=== PATIENT | female | born 1960 | race Caucasian/White ===

== ENCOUNTER 2021-01-18 15:13 | Outpatient (REF) | payer MEDICAID, SELFPAY ==
--- NOTE | 2021-01-18 15:54 | MHC.AU.ANR ---
Adult Audiological Evaluation Date of Visit: 01/18/21 Reason for Appointment: Audiological evaluation due to concern for decreased hearing. Ms. Hameed feels that she hears well most of the time, but notes that she has been asking for repetition more frequently. She also finds that she is more sensitive to some sounds. She has a family history of hearing loss and would like to have a baseline audiogram in case her hearing gets worse overtime. Does patient feel they have a hearing loss?: Unsure When Was Hearing Difficulty First Noticed?: Over the last year or so Has hearing been tested previously?: No Hearing Handicap Inventory: HHIE SCORE: 4 Based on HHIE score, patient has: No perceived hearing handicap Ear History: Family History of Hearing Loss?: Yes: Father and paternal grandmother Medical History: Medical History: of both sons with normal deliveries in May 1992 and Nov 1993. Plates and screws in left tibial head and right radius due to an accident. Allergies: Codeine and sulfa drugs Medication List: Supplements: Vitamin D, C, B-Complex, CoQ10, Magnesium Otoscopy: Right Ear: Unremarkable Left Ear: Unremarkable Tympanometry: Tympanometry performed due to: To assess integrity of the middle ear system Right Ear: Normal Middle Ear System (Type A) Left Ear: Normal Middle Ear System (Type A) Hearing Evaluation: Transducer(s) Used: Insert Earphones Method: Conventional Audiometry Stimuli Used: Pure Tones Right Ear: Description of Hearing: Normal hearing from 250-8000 Hz. Left Ear: Description of Hearing: Normal hearing from 250-8000 Hz. Speech Recognition Threshold (SRT): Method Used: Monitored Live Voice Stimuli Used: Spondee Words Right Ear: 15 dBHL Left Ear: 15 dBHL Word Discrimination: Method: Recorded Lists Word Lists Used: NU-6 Right Ear: 96% at 55 dBHL Left Ear: 100% at 55 dBHL QuickSIN: -1 dB SNR loss when presented binaurally at 55 dBHL, indicating normal [id number] understanding abilities. Recommendations: No further audiological action is indicated at this time. Recommend re-evaluation in 5 years, or sooner if changes are noted. Diagnosis: Primary Diagnosis: H93.293 Abnormal Auditory Perception Services Performed: Services Performed: Pure Tone- Air (CPT 13765) Speech Audiometry Threshold, with Speech Recognition (CPT 30695) Tympanometry (CPT 27903) Unlisted Otorhinolaryngological Service or Procedure (CPT 33771) Signature: Provider: Velvet Weinberg, CCC-A
== END 2021-01-18 15:14 | disposition home or self-care (01) ==
LOC: HO.SH 15:13
PROVIDERS: Visit Provider Nurse Practitioner Primary Care
DX: H93.239 Hyperacusis, unspecified ear (principal)
CPT/HCPCS: 92552; 92556; 92567; 92700